=== PATIENT | male | born 1990 ===

== ENCOUNTER 2019-06-19 22:45 | Emergency (ER) | payer SELFPAY ==
[~2019-06-19] VITALS: Ht 182.9 cm; Wt 70.0 kg
--- NOTE | 2019-06-20 00:59 | NUR ---
PT CALLED FOR ROOM, NO ANSWER AT THIS TIME, NEXT PT ROOMED
--- NOTE | 2019-06-20 01:39 | NUR ---
ERP AT BEDSIDE TO EVAL.
[2019-06-20 01:45] VITALS: BP 107/63
[2019-06-20] MEDS ORDERED: DIPH,PERTUSS(ACELL),TET VAC/PF 0.5 ML IM-VACC ONE ×2 (01:55→02:00)
== END 2019-06-20 02:05 | disposition home or self-care (01) ==
LOC: ED 06-20 01:30
DX: L20.84 Intrinsic (allergic) eczema (principal)
CPT/HCPCS: 90471; 90715